=== PATIENT | male | born 1975 | race Caucasian/White ===

== ENCOUNTER 2023-06-10 15:16 | Emergency (ER) | payer SELFPAY ==
[~2023-06-10] VITALS: Ht 172.7 cm; Wt 87.0 kg
[2023-06-10 15:32] VITALS: O2SAT 98
[2023-06-10] MEDS ORDERED: HYDROCODONE/ACETAMINOPHEN 10/325MG TABLET PO ONE (15:45)
[2023-06-10 17:04] LABS: *AMPHETAMINES SCREEN URINE NEGATIVE (NEGATIVE); *BARBITURATES SCREEN URINE NEGATIVE (NEGATIVE); *BENZODIAZEPINES SCREEN URINE NEGATIVE (NEGATIVE); *COCAINE SCREEN URINE PRESUMTIVE POSITIVE (NEGATIVE); CANNABINOID URINE SCREEN NEGATIVE (NEGATIVE); ECSTASY MDMA SCREEN URINE NEGATIVE (NEGATIVE); OPIATES URINE SCREEN NEGATIVE (NEGATIVE); PHENCYCLIDINE URINE SCREEN NEGATIVE (NEGATIVE)
[2023-06-10] MEDS ORDERED: IBUP-1525 MT (18:29)
[2023-06-10] MEDS ORDERED: HYDR-4001 MT (18:29)
[2023-06-10 18:48] VITALS: BP 140/83; PULSE 90; RESP 20; TEMP 98.1
== END 2023-06-10 19:29 | disposition home or self-care (01) ==
LOC: ER 15:16
DX: M25.532 Pain in left wrist (principal); M25.531 Pain in right wrist; M25.562 Pain in left knee
CPT/HCPCS: 80305; 71045; 73100; 73562; 93005; 99285; Z7610